=== PATIENT | male | born 1950 | race Caucasian/White ===

== ENCOUNTER 2018-02-06 16:02 | Inpatient (IN) | payer OTHER, MEDICARE, SELFPAY ==
[2018-02-06] VITALS (27 sets, daily range): BP systolic 135–185; BP diastolic 78–110; PULSE 75–119; RESP 18–25; TEMP 35.6–36.8; O2SAT 95–100; BMI 26.6; BMI 25.4; BMI 26.7
--- NOTE | 2018-02-06 16:11 | EKG12_ITS ---
Test Reason : CONFUSION Blood Pressure : / mmHG Vent. Rate : 080 BPM Atrial Rate : 080 BPM P-R Int : 136 ms QRS Dur : 140 ms QT Int : 438 ms P-R-T Axes : 046 -71 006 degrees QTc Int : 505 ms Normal sinus rhythm Left axis deviation Right bundle branch block Lateral infarct , age undetermined Inferior infarct , age undetermined Abnormal ECG Confirmed by RONDA AYALA ([id number]), editor book SHARIFA ROJO ([id number]) on 02/20/2018 5:14:56 PM Referred By: KRYSTIN/ELLI Confirmed By:RONDA AYALA
--- NOTE | 2018-02-06 16:11 | RAD_ITS ---
STUDY: X-RAY CHEST REASON FOR EXAM: Male, 67 years old. Chest pain TECHNIQUE: Frontal view of the chest COMPARISON: 10/11/2016 FINDINGS: The lungs are clear. There are no pleural effusions. There is no pneumothorax. The heart is normal in size. The visualized osseous structures are within normal limits. RAD/Chest 1 View IMPRESSION: No acute thoracic pathology. Electronically Signed: Pro Samaniego, at 17:25 EDT Tel , Service support ,
--- NOTE | 2018-02-06 16:11 | CT_ITS ---
STUDY: CT BRAIN WITHOUT CONTRAST REASON FOR EXAM: Male, 67 years old. Altered mental status. Stroke alert. RADIATION DOSAGE (If Supplied By Facility): CTDIvol = ( 44.99 ) mGy, DLP = ( 796.11 ) mGycm TECHNIQUE: Transaxial CT imaging of the brain was performed without administration of intravenous contrast material. Individualized dose optimization techniques were used for this CT. COMPARISON: 12/11/2016. FINDINGS: There is no acute bleed or infarct. There are stable chronic ischemic and atrophic changes. The ventricles are normal in configuration. There is no hydrocephalus. The visualized paranasal sinuses are clear. The mastoid air cells are well aerated. There is no skull fracture. CT/Brain/Head without Contrast IMPRESSION: Stable chronic ischemic and atrophic changes. No acute intracranial abnormality. N.B. : The above information has been verbally conveyed by Pro Samaniego to Jeffrey Alvarado, Referring Physician, on 02/06/2018 16:37:24 (ET). Electronically Signed: Pro Samaniego, at 16:37 EDT Tel , Service support , N.B. : The above information has been verbally conveyed by Pro Samaniego to Jeffrey Alvarado, Referring Physician, on 02/06/2018 16:37:24 (ET).
[2018-02-06 16:18] LABS: Absolute Lymphocyte Count 2.07 X10^3/ul (0.83-4.51); Basophil# 0.01 X10^3/uL; Basophil% 0.1 % (0-1); Eosinophil# 0.05 X10^3/uL; Eosinophils% 0.5 % (0-5); Hematocrit 43.3 % (40-54); Hemoglobin 15.4 g/dl (13.0-16.5); Lymphocyte # 2.07 X10^3/ul (4.0); Lymphocyte % 21.8 % (19-41); Mean Corp Hgb Conc 35.6 g/gl (32-36); Mean Corpuscular Hgb 32.1 pg (27.0-32.0); Mean Corpuscular Volume 90.2 fL (80-94); Mean Platelet Vol. 10.2 fl (6.2-12.0); Monocyte% 4.2 % (0-10); Neutrophil # 6.95 X10^3/uL (2.7-7.7); Neutrophil % 73.3 % (47-70); Platelet Count 220 K/mm3 (150-450); RBC Distribution Width CV 12.3 % (11.6-14.6); RBC Distribution Width SD 40.5 fl (35.1-43.9); White Blood Count 9.5 K/mm3 (4.4-11.0)
--- NOTE | 2018-02-06 16:19 | ED.DCSUM_ITS ---
- ER Visit Summary Date of Service: 02/06/18 Chief Complaint: Confusion, trouble speaking, right-sided weakness History of Present Illness: The patient is a 67 M presents to the emergency department with sudden onset confusion and right-sided weakness. Patient was in his normal state of health. He actually had a late lunch with his and his son. He was upstairs in his bedroom and began to yell for his . When she got there, he had slurred speech. He was not moving the right side of his body. He was complaining of pain and had multiple episodes of vomiting. Patient does have a history of prior TIA, but no history of stroke. He does take aspirin. He also has history of hypertension, hyperlipidemia, diabetes. On squad arrival, the patient was diaphoretic. He would only respond what are you doing?. He would not answer any other questions. Family denies any recent trauma. Physical Examination: Patient has an NIH of 12 on arrival. It does appear as if he has some right-sided neglect. He has weakness of the right upper extremity. He does have some mild weakness of the right lower extremity. He does have what appears to be expressive aphasia. He is in mild distress. Heart is regular rate and rhythm. Lungs are clear. Abdomen soft, nontender, nondistended. Test Results: [] Emergency Department Course and Treatment: Stroke team was activated on patient arrival. He was sent immediately for CT. CT shows no evidence of acute bleeding or acute infarct. The patient continues to have components of expressive aphasia and right arm weakness. I did discuss patient with Dr. Aranda. The patient was a TPA candidate and this was ordered. Patient will undergo CTA of the head and neck. He was also given Zofran for his nausea. Blood work is obtained and is unremarkable except for hyperglycemia. CTA does not show significant large vessel obstruction. The patient had marked improvement after TPA and repeat NIH was 2. He will be admitted to the ICU. Treatment Plan: [] Dispositio admission Impression: 1. Acute ischemic stroke status post TPA This note was generated with [employer] dictation software. It may contain incorrect words, spelling, and punctuation that were not noted in review of the chart prior to signing ED Disposition - Plan for ED Patient: Chief Complaint: Mental Status Change [facility] [[facility] Provider[facility] -
[2018-02-06 16:20] LABS: POSITIVE COUNT NO; POSITIVE DIFFERENTIAL NO; POSITIVE MORPHOLOGY NO
--- NOTE | 2018-02-06 16:23 | EKG12_ITS ---
Test Reason : CONFUSION Blood Pressure : / mmHG Vent. Rate : 085 BPM Atrial Rate : 085 BPM P-R Int : 134 ms QRS Dur : 136 ms QT Int : 430 ms P-R-T Axes : 047 -51 003 degrees QTc Int : 511 ms Normal sinus rhythm Left axis deviation Right bundle branch block Lateral infarct , age undetermined Inferior infarct , age undetermined Abnormal ECG Confirmed by RONDA AYALA ([id number]), restaurant expeditor SHARIFA ROJO ([id number]) on 02/20/2018 5:15:39 PM Referred By: KRYSTIN/ELLI Confirmed By:RONDA AYALA
[2018-02-06 16:29] LABS: Partial Thromboplast Time 27.3 Seconds (24.1-36.2); Prothrombin Time (Protime)PT. 13.1 SECONDS (11.7-14.9)
[2018-02-06 16:34] LABS: Anion Gap 12 (5-15); BUN 19 mg/dL (7-18); BUN/Creat Ratio 16.4 RATIO (10-20); Calcium,Total 9.5 mg/dL (8.5-10.1); Chloride 103 mmol/L (98-107); Creatinine, Serum 1.16 mg/dL (0.70-1.30); EST Glomerular Filtration Rate 67 mL/min (>60); Est Glom Filt Rate - Afr Amer 80 mL/min (>60); Estimated Creatinine Clearance 60.95 ml/min; Glucose 363 mg/dL (74-106); Potassium 5.3 mmol/L (3.5-5.1); Sodium Level 136 mmol/L (136-145)
--- NOTE | 2018-02-06 16:46 | CT_ITS ---
STUDY: CTA NECK WITH CONTRAST REASON FOR EXAM: Male, 67 years old. Change in mental status with diaphoresis. History of myocardial infarction. RADIATION DOSAGE (If Supplied By Facility): CTDIvol = ( ) mGy, DLP = ( ) mGycm TECHNIQUE: CT angiography with multi-detector data acquisition was performed from the aortic arch to the skull base following intravenous administration of 100 ml of Isovue-370 contrast. MIP images were reconstructed from the axial data set. Post-processing of the angiographic images was performed, with multiplanar reformation and 3D reconstruction. Individualized dose optimization techniques were used for this CT. COMPARISON: Images of CTA carotid arteries October 11, 2016 are not available for comparison at the time of this dictation, but review of the report for that exam was made. FINDINGS: There are multilevel degenerative changes of the visualized cervical spine, degenerative disc height narrowing, endplate spondylosis, and facet joint DJD. AORTIC ARCH: Normal visualized aortic arch. Normal origins of the brachiocephalic, left common carotid, and left subclavian arteries. RIGHT CAROTID ARTERIES: Normal right common carotid artery (CCA). Normal right common carotid bulb. Normal origin of the right internal carotid (ICA) artery without a hemodynamically significant stenosis. Normal visualized cervical portion of the right internal carotid artery. There is mild atherosclerotic plaque formation of the origin of the right external carotid artery with approximate 50% diameter stenosis. LEFT CAROTID ARTERIES: Normal left common carotid artery (CCA). There is mild mixed calcified and noncalcified atherosclerotic plaque formation with minimal narrowing of the left carotid bulb. Normal origin of the left internal carotid (ICA) artery without a hemodynamically significant stenosis. Normal visualized cervical portion of the left internal carotid artery. Normal origin of the left external carotid artery (ECA). VERTEBRAL ARTERIES: Moderate to moderately severe stenosis versus kinking seen at the ostium of the right vertebral artery. The cervical segment is otherwise patent to the foramen magnum. Normal left vertebral artery. CT/CTA Neck W/WO Contrast IMPRESSION: 1. Moderate atherosclerotic plaquing of the bilateral cervical carotid artery bifurcations without significant narrowing of the internal carotid arteries. 2. Moderate to moderately severe stenosis versus kinking at the ostium of the right vertebral artery. The left vertebral artery is widely patent. Electronically Signed: Jermaine Mathur MD at 19:15 EDT , Service support ,
--- NOTE | 2018-02-06 16:46 | CT_ITS ---
STUDY: CTA OF THE BRAIN REASON FOR EXAM: Male, 67 years old. Change in mental status with diaphoresis. History of myocardial infarction. RADIATION DOSAGE (If Supplied By Facility): CTDIvol = ( 15.31 ) mGy, DLP = ( 718.93 ) mGycm TECHNIQUE: CT angiography was performed with a multi-detector CT scanner. Data acquisition was obtained from the skull base through the vertex following intravenous administration of 100 ml of Isovue-370. MIP images were reconstructed from the axial data set. Post-processing of the angiographic images was performed, with multiplanar reformation and 3D reconstruction. Individualized dose optimization techniques were used for this CT. COMPARISON: CTA head December 10, 2016; CT brain 1610 hours. FINDINGS: Stable atherosclerotic calcification of the vertical segments of the bilateral petrous carotid arteries with less than 50% diameter stenosis. There is stable calcified plaque formation of the right cavernous carotid artery, with a mild stenosis (less than 50%). There is stable calcified plaque formation of the left cavernous carotid artery, with a mild stenosis (less than 50%). Normal A1 segment of the anterior cerebral artery. Normal A1 segment of the anterior cerebral artery. Normal intact anterior communicating artery (ACOM). Normal bilateral A2 segments of the anterior cerebral arteries. Normal M1 and M2 segments of the middle cerebral artery, with a normal M1 bifurcation. Normal M1 and M2 segments of the middle cerebral artery, with a normal M1 bifurcation. There is non-visualization of the right posterior communicating artery (PCOM). There is non-visualization of the left posterior communicating artery (PCOM). Normal bilateral vertebral arteries. Normal basilar artery with a normal basilar bifurcation. The visualized bilateral superior cerebellar (SCA) arteries are normal. Normal bilateral P1, P2 and visualized P3 segments of the posterior cerebral arteries. There is no demonstrated aneurysm of the [place]. There is no demonstrated acute abnormality of the visualized brain. CT/CTA Head W/WO Contrast IMPRESSION: No demonstrated aneurysm or hemodynamically significant stenosis of the intracranial arterial circulation, unchanged. Electronically Signed: Jermaine Mathur MD at 19:34 EDT , Service support ,
[2018-02-06 16:56] LABS: Bedside Glucose 362 mg/dL (70-110)
[2018-02-06] MEDS: Ondansetron 4 MG/2 ML Vial IV (16:58)
--- NOTE | 2018-02-06 19:59 | HP.PCM_ITS ---
Problem List (1) Hypertension Status: Chronic Qualifiers: Hypertension type: essential hypertension Qualified Code(s): I10 - Essential (primary) hypertension (2) Diabetes Status: Chronic Qualifiers: Diabetes mellitus type: type 2 Diabetes mellitus penitentiary insulin use: without penitentiary use Diabetes mellitus complication status: with unspecified complications Qualified Code(s): E11.8 - Type 2 diabetes mellitus with unspecified complications History of Present Illness Date of Admission: 02/06/18 Chief Complaint: Trouble speaking, confusion - 1 day The patient is a 67 year old M with past medical history of type II DM, not on insulin, hypertension, CAD status post OK, questionable history of psychiatric illness, follows up with the [facility]. Patient has a history of having trouble speaking, from review of chart, with 3 similar episodes of dysarthria in 2017. Imaging of the brain done in 2017 was negative for acute stroke. Patient was said to be in his usual state of health over the last couple of days ,. Today, he was said to have had his dinner, went upstairs to use the bathroom. His heard a loud noise upstairs. She went to check on him he was sitting on the bed appeared confused, clutching his right hand and kept saying I don't, I don't repeatedly. He was alert oriented only to himself and could not answer questions well. He appeared to have trouble finding words. His NIH score was said to be 12 on arrival with some right-sided neglect. Patient, at the time of taking a history - mainly from the , appeared not to comprehend what I was asking. He appear to have word finding difficulty. Said he could not be seen here because he has to go to the [facility]. patient had a initial CAT scan done in the ED that was negative for any acute stroke. Upon discussion with the neurologist, patient's was subsequently giving TPA and a CT of his head and neck done subsequently showed moderate to severe stenosis versus kinking seen at the ostium of the right vertebral artery. Vitals in the ED with a temperature of 6F, heart rate of 84, blood pressure 185/ 98, respiratory rate was 18, oxygen was 95% on RA. Past Medical History Past Medical History (Chronic Problems): Chronic Problems Hypertension (Chronic) TIA (transient ischemic attack) (Chronic) Depression (Chronic) Diabetes (Chronic) Allergies No Known Allergies Allergy (Verified 02/06/18 16:15) Home Medications: Ambulatory Orders Medication Instructions Recorded Atorvastatin Calcium [Lipitor] 40 mg PO QHS 10/11/16 Venlafaxine HCl 75 mg PO DAILY 10/11/16 glipiZIDE [Glucotrol] 20 mg PO BIDAC 10/11/16 Metoprolol Tartrate 12.5 mg PO BID 10/12/16 Aspirin [Aspirin, Baby] 81 mg PO DAILY@0800 tab.chew 12/11/16 Metformin HCl [Glucophage] 1,000 mg PO DINNER #0 12/11/16 Metformin HCl [Glucophage] 500 mg PO BREAKFAST #0 12/11/16 Surgical History: no surgical history Psychiatric History: Depression, - Lives: Spouse/ Significant Other Smoking Status: Former smoker Tobacco Use: Non-smoker Alcohol: None Drugs: None - *Family History Maternal History Items: No pertinent history Paternal History Items: Heart Disease Review of Systems Constitutional: Denies: Anorexia, Chills, Fever, Night Sweats, Weakness, Weight Change Eyes: Denies: Blurred vision, Cataracts, Conjunctivae Inflammation, Double vision HEENT: Denies: Difficulty Hearing, Difficulty Swallowing, Head Aches, Hearing Changes, Nasal bleeding, Sinus Congestion, Sinus Drainage Cardiovascular: Denies: Chest Pain, Claudication, Chest Pressure, Chest Tightness, Orthopnea, Palpitations, Paroxysmal Noc. Dyspnea, Syncope Respiratory: Denies: Cough, Hemoptysis, Pleuritic Pain, Shortness of breath at rest, Shortness of breath upon exertion, Sputum production Gastrointestinal: Denies: Abdominal Pain, Constipation, Hematemesis, Hematochezia, Nausea, Vomiting Genitourinary: Denies: Dysuria, Frequency, Hematuria, Incontinence, Nocturia, Retention Musculoskeletal: Denies: Joint Pain, Joint stiffness, Joint swelling, Joint Tenderness Skin: Denies: Rash, Wounds Neurological: Denies: Numbness, Tingling, Focal weakness Psychiatric: Denies: Anxiety, Depression, Homicidal Ideations, Suicidal Ideations Hematologic/ Lymphatic: Denies: Easy Bruising, Easy Bleeding VTE Information - Inpt Only VTE Present on Admission: No VTE Pharm Prophylaxis ordered?: Yes - Physical Exam General: Alert, Confused, Non-Cooperative HEENT: Atraumatic, PERRLA, EOMI, Normocephalic Oral: Moist Mucosa Neck: Supple Lungs: Clear to auscultation, Normal air movement Cardiovascular: Regular rate, Regular Rhythm, Normal S1, Normal S2, No murmurs Abdomen: Bowel Sounds Present, Soft, Non Tender, Non-Distended, No Hepato- splenomegaly Extremities: No edema Skin: No rashes, No breakdown Musculoskeletal: No Tenderness to Palpation of Joints or Extremities Lymphatic: No Cervical, Supraclavicular, or Inguinal Adenopathy Neurological: - - Patient was uncooperative with exam. Vital Signs Temp Pulse Resp BP Pulse Ox 98.2 F 101 H 25 H 168/81 H 100 02/06/18 19:34 02/06/18 19:34 02/06/18 19:34 02/06/18 19:05 02/06/18 19:34 Oxygen Flow Rate (L/min) 2 Oxygen Delivery Method Room Air Weight: 82 kg Body Mass Index (BMI) 26.6 Finger Stick Blood Glucose 362 Laboratory Tests Past 24 Hrs 02/06/18 02/06/18 02/06/18 16:08 16:08 16:08 WBC 9.5 RBC 4.80 Hgb 15.4 Hct 43.3 MCV 90.2 MCH 32.1 H MCHC 35.6 RDW 12.3 RDW Differential 40.5 Plt Count 220 MPV 10.2 Immature Gran % (Auto) 0.100 Neut % (Auto) 73.3 H Lymph % (Auto) 21.8 [place] % (Auto) 4.2 Eos % (Auto) 0.5 Baso % (Auto) 0.1 Absolute Neuts (auto) 7.0 Absolute Lymphs (auto) 2.07 Total Counted Not Reportable PT 13.1 INR 1.0 APTT 27.3 Sodium 136 Potassium 5.3 H Chloride 103 Carbon Dioxide 21.0 Anion Gap 12 BUN 19 H Creatinine 1.16 Estim Creat Clear Calc 60.95 Est GFR (MDRD) Af Amer 80 Est GFR (MDRD) Non-Af 67 BUN/Creatinine Ratio 16.4 Glucose 363 H Calcium 9.5 Troponin I < 0.015 POC Glucose 02/06/18 16:33 POC Glucose 362 H Assessment/Plan 67 year old M with past medical history of type II DM, not on insulin, hypertension, CAD status post OK, questionable history of psychiatric illness, [facility], comes in with acute onset of trouble speaking as well as right- sided weakness. 1. Acute onset of dysarthria/expressive aphasia, in a patient with questionable history of psychiatric illness, patient's NIH score was 12 in the ED, CT of the head on admission was negative, given TPA. Repeat NIHSS was 2. Unclear if this is truly acute ischemic stroke as patient has had similar repeated presentations like that in 2017 which imaging has been negative. Plan: Admit to ICU status post TPA for monitoring, monitor NIH scores, profile in a.m., HbA1c, 2D echo neurologist and cross country/track and field coach consult, control BP for SBP <140/90, physical therapy, Occupational Therapy, speech therapy consult, obtain records from [facility] especially with regards to patient's psychiatric history. 2. Type II DM, on metformin and glipizide, will check HbA1c, continue with glipizide,will hold metformin in light of recent contrast, continue with insulin sliding scale with accucheks. 3. Hypertension, on metoprolol, continue same with holding parameters 4. Depression, continue home venlafaxine 5. CAD post OK, on aspirin, statin, beta-dorothy, will hold aspirin for now in the light of recent TPA 6. DVT prophylaxis with SCDs -prophylaxis contraindicated Code Visit Inpatient E&M: 44757 Init Hosp L3
--- NOTE | 2018-02-06 21:07 | MRI_ITS ---
STUDY: MRI BRAIN WITHOUT CONTRAST REASON FOR EXAM: Male, 67 years old. acute cva, s/p tpa. Change in mental status with diaphoresis. History of myocardial infarction. TECHNIQUE: Standardized multiplanar fat and water weighted pulse sequences were obtained. COMPARISON: None. FINDINGS: There is mild cerebral atrophy with widening of the extra-axial spaces and ventricular dilatation. There are a limited number of small white matter hyperintensities, distributed throughout the deep white matter tracts of the cerebral hemispheres, consistent with minimal chronic white matter ischemic changes. Normal bilateral basal ganglia. Normal thalami. There is no extra-axial fluid accumulation. Normal flow voids within the major intracranial circulation suggesting patency by spin echo criteria. Normal sella turcica, pituitary gland, infundibular stalk, optic chiasm and hypothalamus. Normal tectal plate and pineal gland. Normal midbrain, lala and medulla. Normal cerebellum. Normal basal cisterns. Normal bilateral temporal bones. Normal bilateral internal auditory canals. MRI/Brain without Contrast IMPRESSION: No acute intracranial abnormality. Electronically Signed: Mckenzie Reyes MD at 10:24 EDT Tel , Service support ,
--- NOTE | 2018-02-06 21:21 | ECHOD_ITS ---
Reason For Study: TIA/CVA Procedure This was a 2D Doppler, Color Flow transthoracic echocardiogram. The exam was of adequate technical quality. Exam performed portable in ICU/CCU. Left Ventricle Normal LV size. Segmental dysfunction with preserved ejection fraction (see wall motion). The estimated ejection fraction is 60 %. There is evidence of diastolic dysfunction. Infero-Basal: Hypokinetic. Mid-Inferior: Hypokinetic. Right Ventricle Normal RV size. Normal systolic function. Atria Normal left atrium. Normal right atrium. No doppler evidence for ASD. Mitral Valve There is no mitral annular calcification. Normal mitral valve. Trivial mitral valve insufficiency. Tricuspid Valve Normal tricuspid valve. Trivial tricuspid valve insufficiency. Right ventricular systolic pressure estimated to be 20 mmHg. Aortic Valve Trisinus/trileaflet aortic valve. Mild diffuse aortic valve thickening. Moderate diffuse aortic valve calcification. Mild aortic stenosis. Pulmonic Valve The pulmonic valve is not well visualized. Great Vessels Normal sized aortic root. Pericardium/Pleural No pericardial effusion. MMode/2D Measurements & Calculations LVIDd: 4.5 cm IVSd: 1.2 cm LVOT diam: 2.1 cm LVIDs: 3.2 cm LVPWd: 1.0 cm LVOT area: 3.4 cm2 RVDd: 4.2 cm FS: 29.1 % LA dimension: 3.7 cm LAV(MOD-bp): 44.3 ml LA A4 area: 17.9 cm2 LAV(MOD-bp) Indexed: 22.9 ml/m2 LAV(MOD-sp2): 39.3 ml LAV(MOD-sp4): 44.2 ml RA A4 area: 17.3 cm2 Doppler Measurements & Calculations MV E max jhonny: 94.4 cm/sec Lat Peak E' Jhonny: 7.2 cm/sec Med Peak E' Jhonny: 5.3 cm/sec MV A max jhonny: 106.5 cm/sec E/E' lat: 13.1 E/E' med: 17.8 MV E/A: 0.89 Ao V2 max: 263.4 cm/sec LV V1 max: 133.1 cm/sec SV(LVOT): 102.8 ml Ao max P.8 mmHg LV V1 max P.1 mmHg Ao V2 mean: 184.7 cm/sec LV V1 mean P.8 mmHg Ao mean P.3 mmHg LV V1 mean: 91.4 cm/sec Ao V2 VTI: 53.9 cm LV V1 VTI: 30.3 cm [place](I,D): 1.9 cm2 [place](V,D): 1.7 cm2 PA V2 max: 107.9 cm/sec TR max jhonny: 203.1 cm/sec TR max P.5 mmHg Interpretation Summary Segmental dysfunction with preserved ejection fraction (see wall motion). The estimated ejection fraction is 60 %. Trivial mitral valve insufficiency. Trivial tricuspid valve insufficiency. Mild aortic stenosis. Right ventricular systolic pressure estimated to be 20 mmHg. There is evidence of diastolic dysfunction. Ordering Physician: Shalini Oquendo Referring Physician: [facility] Performed By: Romelia Flores, DANISHA, RVT
[2018-02-06] MEDS: Atorvastatin Calcium 40 MG Tablet PO (21:42)
[2018-02-06] MEDS: 0.9% Normal Saline 1,000 ML 100 ML IV (21:42)
[2018-02-06] MEDS: Senna/Docusate Sodium 1 Tablet 2 TABLET PO (21:42)
[2018-02-06] MEDS: Insulin Lispro 100 UNIT/ML INSULN.PEN SQ (21:58)
[2018-02-06 22:05] LABS: Bedside Glucose 402 mg/dL (70-110)
[2018-02-06 22:14] LABS: Hemoglobin A1c 8.2 % (4.2-6.3)
[2018-02-06] MEDS: Metoprolol Tartrate 25 MG Tablet 12.5 MG PO (22:41)
[2018-02-07] VITALS (36 sets, daily range): BP systolic 95–143; BP diastolic 61–99; PULSE 62–118; RESP 12–24; TEMP 36.6–37.5; O2SAT 94–100; BMI 25.4
[2018-02-07 00:16] LABS: M R Staph aureus DNA By PCR Negative (Negative); Probe Check PASS; Specimen Processing Control PASS
--- NOTE | 2018-02-07 01:15 | NURSING ---
came in to visit pt around 0030 on 02/07. this RN gave pt's home meds and pt's wallet to take home. this RN explained importance to return for morning rounds. verbalized understanding
[2018-02-07 05:12] LABS: Hematocrit 38.3 % (40-54); Hemoglobin 13.3 g/dl (13.0-16.5); Mean Corp Hgb Conc 34.7 g/gl (32-36); Mean Corpuscular Volume 92.3 fL (80-94); Mean Platelet Vol. 10.3 fl (6.2-12.0); Platelet Count 238 K/mm3 (150-450); RBC Distribution Width CV 12.4 % (11.6-14.6); RBC Distribution Width SD 40.8 fl (35.1-43.9); Red Blood Count 4.15 M/mm3 (4.6-6.2); White Blood Count 11.8 K/mm3 (4.4-11.0)
[2018-02-07 05:28] LABS: Anion Gap 12 (5-15); BUN 19 mg/dL (7-18); BUN/Creat Ratio 15.3 RATIO (10-20); Calcium,Total 8.3 mg/dL (8.5-10.1); Chloride 103 mmol/L (98-107); Cholesterol 110 mg/dL (200); Creatinine, Serum 1.24 mg/dL (0.70-1.30); EST Glomerular Filtration Rate 62 mL/min (>60); Est Glom Filt Rate - Afr Amer 75 mL/min (>60); Estimated Creatinine Clearance 55.16 ml/min; Glucose 384 mg/dL (74-106); High Density Lipoprotein 36 mg/dL; Potassium 4.1 mmol/L (3.5-5.1); Scan Indicated on CBC? Y/N NO; Sodium Level 138 mmol/L (136-145); Triglycerides 114 mg/dL; Very Low Density Lipoprotein 23 mg/dL (5-40)
[2018-02-07] MEDS: Insulin Lispro 100 UNIT/ML INSULN.PEN 10 UNIT SC (06:21)
--- NOTE | 2018-02-07 06:30 | PCM.PROGNOTE ---
Subjective: The patient is a 67-year-old male with a past medical history of hypertension, TIA, depression, diabetes mellitus type 2 and hyperlipidemia who presented to the emergency room by squad with right-sided weakness, slurred speech and confusion. In the emergency room his initial NIH was 12 with expressive aphasia and right-sided weakness. Vital signs upon arrival to the emergency room were temperature 96, pulse rate 84, blood pressure 185/98, respiratory rate 18 and he was 95% saturated on room air. CT brain showed stable chronic ischemic and atrophic changes with no acute intracranial abnormality. Chest x-ray showed no pulmonary vascular congestion, infiltrates or pleural effusions. CTA of the neck showed moderate atherosclerotic plaquing of bilateral cervical carotid artery bifurcations without significant narrowing of the internal carotid arteries. There was moderate to moderately severe stenosis versus kinking at the ostium of the right vertebral artery. The left vertebral artery was widely patent. CTA of the head showed no demonstrated aneurysm or hemodynamically significant stenosis of the intracranial arterial circulation. CBC was unremarkable. PT and PTT were normal. Potassium was elevated at 5.3 and the BUN was 19 with a creatinine of 1.16. Random blood sugar was 363 and a hemoglobin A1c is 8.2. Troponin was less than 0.015. LDL is 51 with an HDL of 36. Triglycerides are 114. TPA was given in the emergency room. He was admitted to the intensive care unit and stroke protocol was initiated. All events of the past 24 hours have been reviewed. TMAX: 99.5 Vital signs: Current vital signs are temperature 98.1, heart rate 82, blood pressure 102/66, respiratory rate 15 and he is 98% saturated on room air. Fluid balance: -60 since admission Urine output: 1250 Weight: 174 pounds and 6 ounces All radiologic testing was reviewed: See the [facility] All labs were personally reviewed: Creatinine is 1.24 today, up from 1.16 at admission. Fasting blood sugar is 384. White blood cell count is 11.8 and hemoglobin is 13.3 with normal platelets. Microbiology: N/A Telemetry: ECHO:ordered EKG: Subjective: Passed the bedside swallowing eval per nursing and started on a carb control diet with low salt and low fat. reports that the patient has been non-compliant with medications at home. He is not taking any statins becuase he states they make him confused. He manages his own medication and takes what he wants. He has not spoken to her in 2 months because he is mad that she took a inspector purchased parts job a few months ago. He is very passive aggressive with her and manipulative. He tells me that his A1C used to be good but now he is unable to exercise because he has back pain and can not do the treadmill....he has not addressed this with his PCP. He follows up at the [facility]. He denies any CP, SOB, Headache today and the NIH is 0. Objective: PHYSICAL EXAM: GENERAL: alert, oriented X 3, Cooperative, NAD, ORAL: moist mucosa, no mucosal lesions NECK: No JVD, supple, trachea midline, no carotid bruits heard LUNGS: CTA, symmetric chest expansion HEART: RRR, Normal S1 and S2, no rub, no gallop, no MM ABDOMEN: soft, NT, ND, BS present, no guarding with palpation EXTREMITIES: no edema, no cyanosis, no calf tenderness, pulses are normal in the arms and legs SKIN: No rashes, no breakdown NEUROLOGIC: no focal neurologic deficits, CN II - XII are grossly intact, moving all extremities, NIH is 0 PSYCH: appropriate, normal affect, many excuses why he does not take his medications as instructed - Physical Exam Vital Signs Temp Pulse Resp BP Pulse Ox 98.1 F 82 15 102/66 98 02/07/18 06:00 02/07/18 06:00 02/07/18 06:00 02/07/18 06:00 02/07/18 06:00 Oxygen Delivery Method Room Air Weight: 174 lb 6.17 oz Body Mass Index (BMI) 25.4 Intake and Output for Last 24 Hours 02/05/18 02/06/18 02/07/18 23:59 23:59 23:59 Intake Total 1190 / 1190 Output Total 1250 / 1250 Balance -60 / -60 Laboratory Tests Past 24 Hrs 02/06/18 02/06/18 02/07/18 21:30 22:30 04:55 WBC RBC Hgb Hct MCV MCH MCHC RDW RDW Differential Plt Count MPV Sodium 138 Potassium 4.1 Chloride 103 Carbon Dioxide 23.0 Anion Gap 12 BUN 19 H Creatinine 1.24 Estim Creat Clear Calc 55.16 Est GFR (MDRD) Af Amer 75 Est GFR (MDRD) Non-Af 62 BUN/Creatinine Ratio 15.3 Glucose 384 H Hemoglobin A1c 8.2 H Calcium 8.3 L Triglycerides 114 Cholesterol 110 LDL Cholesterol 51 VLDL Cholesterol 23 HDL Cholesterol 36 L MRSA (PCR) Negative 02/07/18 04:55 WBC 11.8 H RBC 4.15 L Hgb 13.3 Hct 38.3 L MCV 92.3 MCH 32.0 MCHC 34.7 RDW 12.4 RDW Differential 40.8 Plt Count 238 MPV 10.3 Sodium Potassium Chloride Carbon Dioxide Anion Gap BUN Creatinine Estim Creat Clear Calc Est GFR (MDRD) Af Amer Est GFR (MDRD) Non-Af BUN/Creatinine Ratio Glucose Hemoglobin A1c Calcium Triglycerides Cholesterol LDL Cholesterol VLDL Cholesterol HDL Cholesterol MRSA (PCR) POC Glucose 02/06/18 21:57 POC Glucose 402 H Medical Necessity - Tobacco Use Smoking Status: Former smoker Tobacco Use: Non-smoker Assessment/Plan Impressions 1. suspected CVA in the distribution of the L MCA - S/P TPA with complete recovery 2. Uncontrolled diabetes mellitus type 2 with a hemoglobin A1c of 8.2 3. Hypertension 4. History of depression 5. Coronary artery disease 6. Noncompliant with medications 7. 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 EEG today. MRI is normal. Reviewed Dr. Aranda's consult Probable DC tomorrow and [facility]. Code Visit Inpatient E&M: 37887 Subs Hosp L3
--- NOTE | 2018-02-07 07:04 | PCM.CON.CC ---
Problem List (1) Hypertension Status: Chronic Qualifiers: Hypertension type: essential hypertension Qualified Code(s): I10 - Essential (primary) hypertension (2) Depression Status: Chronic Qualifiers: (3) Ischemic stroke Status: Acute (4) Dysarthria Status: Acute (5) Diabetes Status: Chronic Qualifiers: Diabetes mellitus type: type 2 Diabetes mellitus supervisor intermediates insulin use: without senior care use Diabetes mellitus complication status: with unspecified complications Qualified Code(s): E11.8 - Type 2 diabetes mellitus with unspecified complications Reason for Consult Date of Consultation: 02/07/18 Reason for Consultation: Stroke protocol status post TPA History of Present Illness: The patient is a 67 year old M, with past medical history listed below, who presented to [facility] on 02/06/2018 with complaints of sudden onset of confusion, right-sided weakness and slurring of speech. Patient was reportedly of his usual health and had eaten a late lunch with his and son. While upstairs, patient began to yell for his . When she got there, slurred speech was reported, along with right-sided weakness. Patient had complained of pain and multiple episodes of vomiting. EMS was called and on arrival reported that the patient was diaphoretic. No trauma was noted. On presentation to the emergency room, patient's NIH was noted to be 12 with reported right-sided neglect. Patient did have weakness of the right upper extremity and mild weakness of the right lower extremity. Patient was also noted to have expressive aphasia. CT scan showed no acute bleeding or infarct. Neurology was contacted by phone and patient was initiated on TPA. The infusion was completed at 1810. On initiation of TPA, patient was noted to have a repeat NIH of 2. Patient was then admitted to the intensive care unit. Overnight in the intensive care unit, patient was noted to be hyperglycemic, but otherwise was hemodynamically stable. Blood pressures did trend higher, but no intervention was required. Patient has remained on room air. Patient's NIH went back to 0. Patient does not have much more recollection of the event that he can express to me. Patient does not have slurred speech at this time. Patient does report a similar type of presentation in the past, but did not get TPA at that time. Patient does not use insulin at home, but admits he does not check his blood sugars frequently. Patient does take metformin at home, but this was held secondary to dye load. Patient is typically cared for at the [facility]. Past Medical History Past Medical History (Chronic Problems): Chronic Problems Hypertension (Chronic) TIA (transient ischemic attack) (Chronic) Depression (Chronic) Diabetes (Chronic) Allergies No Known Allergies Allergy (Verified 02/06/18 23:27) Home Medications: Ambulatory Orders Medication Instructions Recorded Atorvastatin Calcium [Lipitor] 40 mg PO QHS 10/11/16 Venlafaxine HCl 75 mg PO DAILY 10/11/16 glipiZIDE [Glucotrol] 20 mg PO BIDAC 10/11/16 Metoprolol Tartrate 12.5 mg PO BID 10/12/16 Aspirin [Aspirin, Baby] 81 mg PO DAILY@0800 tab.chew 12/11/16 Metformin HCl [Glucophage] 1,000 mg PO DINNER #0 12/11/16 Metformin HCl [Glucophage] 500 mg PO BREAKFAST #0 12/11/16 Surgical History: no surgical history Psychiatric History: Depression, - Lives: Spouse/ Significant Other Smoking Status: Former smoker Tobacco Use: Non-smoker Alcohol: None Drugs: None - *Family History Maternal History Items: No pertinent history Paternal History Items: Heart Disease Review of Systems Comment: See HPI, otherwise negative ?10 systems. No nausea reported at this time. Objective: All imaging was personally reviewed. I agree with formal interpretations. MRI has been ordered - Physical Exam General: Alert, Oriented x3, Cooperative, No apparent distress, - - Flat affect. Speaks in full sentences. Appears stated age. HEENT: Atraumatic, PERRLA, EOMI, Normocephalic, - - No scleral icterus or injection noted. Oral: Moist Mucosa, No Gingival or Mucosal Lesions/ Ulcerations Neck: Supple, No JVD, No Nodes, Trachea Midline Lungs: Clear to auscultation, Normal air movement, No rhonchi, No wheeze, No rales Cardiovascular: Regular rate, Regular Rhythm, Normal S1, Normal S2, No murmurs, No rub noted, No Gallop Abdomen: Bowel Sounds Present, Soft, Non Tender, Non-Distended Extremities: No clubbing, No cyanosis, No edema Skin: No rashes, No breakdown, - - No signs of trauma appreciated. Musculoskeletal: No Tenderness to Palpation of Joints or Extremities, No Muscle Wasting Lymphatic: No Cervical, Supraclavicular, or Inguinal Adenopathy Neurological: Cranial nerves II-XII grossly intact, Neuro grossly intact - No aphasia appreciated, Motor Exam 5/5 strength throughout - Right-sided weakness has resolved, Sensory exam intact to light touch and pain Psych/Mental Status: Appropriate, Flat Affect Vital Signs Temp Pulse Resp BP Pulse Ox 36.7 C 82 15 102/66 98 02/07/18 06:00 02/07/18 06:00 02/07/18 06:00 02/07/18 06:00 02/07/18 06:00 Oxygen Delivery Method Room Air Weight: 79.1 kg Body Mass Index (BMI) 25.4 Intake and Output for Last 24 Hours 02/05/18 02/06/18 02/07/18 23:59 23:59 23:59 Intake Total 1190 / 1190 Output Total 1250 / 1250 Balance -60 / -60 Laboratory Tests Past 24 Hrs 02/06/18 02/06/18 02/07/18 21:30 22:30 04:55 WBC RBC Hgb Hct MCV MCH MCHC RDW RDW Differential Plt Count MPV Sodium 138 Potassium 4.1 Chloride 103 Carbon Dioxide 23.0 Anion Gap 12 BUN 19 H Creatinine 1.24 Estim Creat Clear Calc 55.16 Est GFR (MDRD) Af Amer 75 Est GFR (MDRD) Non-Af 62 BUN/Creatinine Ratio 15.3 Glucose 384 H Hemoglobin A1c 8.2 H Calcium 8.3 L Phosphorus Magnesium Total Bilirubin Direct Bilirubin AST ALT Alkaline Phosphatase Total Protein Albumin Triglycerides 114 Cholesterol 110 LDL Cholesterol 51 VLDL Cholesterol 23 HDL Cholesterol 36 L MRSA (PCR) Negative 02/07/18 02/07/18 04:55 04:55 WBC 11.8 H RBC 4.15 L Hgb 13.3 Hct 38.3 L MCV 92.3 MCH 32.0 MCHC 34.7 RDW 12.4 RDW Differential 40.8 Plt Count 238 MPV 10.3 Sodium Potassium Chloride Carbon Dioxide Anion Gap BUN Creatinine Estim Creat Clear Calc Est GFR (MDRD) Af Amer Est GFR (MDRD) Non-Af BUN/Creatinine Ratio Glucose Hemoglobin A1c Calcium Phosphorus Pending Magnesium Pending Total Bilirubin Pending Direct Bilirubin Pending AST Pending ALT Pending Alkaline Phosphatase Pending Total Protein Pending Albumin Pending Triglycerides Cholesterol LDL Cholesterol VLDL Cholesterol HDL Cholesterol MRSA (PCR) POC Glucose 02/06/18 21:57 POC Glucose 402 H Clinical Impression(s) from Imaging Studies Brain CT 02/06/18 16:11 IMPRESSION: Stable chronic ischemic and atrophic changes. No acute intracranial abnormality. N.B. : The above information has been verbally conveyed by Pro Samaniego to Jeffrey Alvarado, Referring Physician, on 02/06/2018 16:37:24 (ET). Electronically Signed: Pro Samaniego, at 16:37 EDT Tel , Service support , N.B. : The above information has been verbally conveyed by Pro Samaniego to Jeffrey Alvarado, Referring Physician, on 02/06/2018 16:37:24 (ET). Chest X-Ray 02/06/18 16:11 IMPRESSION: No acute thoracic pathology. Electronically Signed: Pro Samaniego, at 17:25 EDT Tel , Service support , Head CTA 02/06/18 16:46 IMPRESSION: No demonstrated aneurysm or hemodynamically significant stenosis of the intracranial arterial circulation, unchanged. Electronically Signed: Jermaine Mathur MD at 19:34 EDT , Service support , Neck CTA 02/06/18 16:46 IMPRESSION: 1. Moderate atherosclerotic plaquing of the bilateral cervical carotid artery bifurcations without significant narrowing of the internal carotid arteries. 2. Moderate to moderately severe stenosis versus kinking at the ostium of the right vertebral artery. The left vertebral artery is widely patent. Electronically Signed: Jermaine Mathur MD at 19:15 EDT , Service support , Assessment/Plan RECOMMENDATIONS: 1. Give 10 units of insulin now 2. Await speech evaluation prior to initiation of p.o. diet 3. Await MRI 4. Monitor for bleeding complications, keep systolic blood pressure less than 180 5. Likely okay to transfer from the intensive care unit after 6:10 PM IMPRESSIONS: 1. Possible acute CVA status post TPA Patient with an NIH of 12 on initial presentation to the emergency room. Patient was given TPA and appears to have completely resolved at this time. No bleeding complications have been noted. Patient has had some elevated blood pressures, but no intervention has been required at this time. Therapies have been consulted. MRI has been ordered. Patient appears to have some carotid disease, but no occlusion is been reported. 2. Type 2 diabetes mellitus, uncontrolled Patient with elevated blood sugars this morning. Metformin was held secondary to recent contrast. Patient given a 10 unit bolus of insulin. Await speech therapy. Reinitiate baseline medications. May need to titrate up hyperglycemic medications as an outpatient. 3. Hypertension/depression/coronary artery disease/poor historian Complicates care, management, recovery and prognosis. Allowing for permissive hypertension at this time. Labetalol and hydralazine as needed can be used if necessary for systolic blood pressures greater than 180. Code Visit Inpatient E&M: [id number] Init Hosp L3
[2018-02-07 07:05] LABS: AST(SGOT) 12 U/L (15-37); Alanine Aminotransfer ALT/SGPT 27 U/L (16-61); Albumin, Serum 3.4 g/dL (3.2-5.0); Alkaline Phosphatase 78 U/L (45-117); Bilirubin, Direct 0.13 mg/dL (0.00-0.30); Globulin 3.1 g/dL (2.2-4.2); Magnesium 1.9 mg/dL (1.6-2.6); Phosphorus 3.7 mg/dL (2.5-4.9); Protein, Total 6.5 g/dL (6.4-8.2)
[2018-02-07 07:10] LABS: Bedside Glucose 279 mg/dL (70-110)
--- NOTE | 2018-02-07 07:14 | CON.PCM_ITS ---
Problem List (1) Hypertension Status: Chronic Qualifiers: Hypertension type: essential hypertension Qualified Code(s): I10 - Essential (primary) hypertension (2) Depression Status: Chronic Qualifiers: (3) Ischemic stroke Status: Acute (4) Dysarthria Status: Acute (5) Diabetes Status: Chronic Qualifiers: Diabetes mellitus type: type 2 Diabetes mellitus oil heaterman insulin use: without fci use Diabetes mellitus complication status: with unspecified complications Qualified Code(s): E11.8 - Type 2 diabetes mellitus with unspecified complications Reason for Consult Date of Consultation: 02/07/18 Reason for Consultation: Stroke protocol status post TPA History of Present Illness: The patient is a 67 year old M, with past medical history listed below, who presented to [facility] on 02/06/2018 with complaints of sudden onset of confusion, right-sided weakness and slurring of speech. Patient was reportedly of his usual health and had eaten a late lunch with his and son. While upstairs, patient began to yell for his . When she got there, slurred speech was reported, along with right-sided weakness. Patient had complained of pain and multiple episodes of vomiting. EMS was called and on arrival reported that the patient was diaphoretic. No trauma was noted. On presentation to the emergency room, patient's NIH was noted to be 12 with reported right-sided neglect. Patient did have weakness of the right upper extremity and mild weakness of the right lower extremity. Patient was also noted to have expressive aphasia. CT scan showed no acute bleeding or infarct. Neurology was contacted by phone and patient was initiated on TPA. The infusion was completed at 1810. On initiation of TPA, patient was noted to have a repeat NIH of 2. Patient was then admitted to the intensive care unit. Overnight in the intensive care unit, patient was noted to be hyperglycemic, but otherwise was hemodynamically stable. Blood pressures did trend higher, but no intervention was required. Patient has remained on room air. Patient's NIH went back to 0. Patient does not have much more recollection of the event that he can express to me. Patient does not have slurred speech at this time. Patient does report a similar type of presentation in the past, but did not get TPA at that time. Patient does not use insulin at home, but admits he does not check his blood sugars frequently. Patient does take metformin at home, but this was held secondary to dye load. Patient is typically cared for at the [facility]. Past Medical History Past Medical History (Chronic Problems): Chronic Problems Hypertension (Chronic) TIA (transient ischemic attack) (Chronic) Depression (Chronic) Diabetes (Chronic) Allergies No Known Allergies Allergy (Verified 02/06/18 23:27) Home Medications: Ambulatory Orders Medication Instructions Recorded Atorvastatin Calcium [Lipitor] 40 mg PO QHS 10/11/16 Venlafaxine HCl 75 mg PO DAILY 10/11/16 glipiZIDE [Glucotrol] 20 mg PO BIDAC 10/11/16 Metoprolol Tartrate 12.5 mg PO BID 10/12/16 Aspirin [Aspirin, Baby] 81 mg PO DAILY@0800 tab.chew 12/11/16 Metformin HCl [Glucophage] 1,000 mg PO DINNER #0 12/11/16 Metformin HCl [Glucophage] 500 mg PO BREAKFAST #0 12/11/16 Surgical History: no surgical history Psychiatric History: Depression, - Lives: Spouse/ Significant Other Smoking Status: Former smoker Tobacco Use: Non-smoker Alcohol: None Drugs: None - *Family History Maternal History Items: No pertinent history Paternal History Items: Heart Disease Review of Systems Comment: See HPI, otherwise negative ?10 systems. No nausea reported at this time. Objective: All imaging was personally reviewed. I agree with formal interpretations. MRI has been ordered - Physical Exam General: Alert, Oriented x3, Cooperative, No apparent distress, - - Flat affect. Speaks in full sentences. Appears stated age. HEENT: Atraumatic, PERRLA, EOMI, Normocephalic, - - No scleral icterus or injection noted. Oral: Moist Mucosa, No Gingival or Mucosal Lesions/ Ulcerations Neck: Supple, No JVD, No Nodes, Trachea Midline Lungs: Clear to auscultation, Normal air movement, No rhonchi, No wheeze, No rales Cardiovascular: Regular rate, Regular Rhythm, Normal S1, Normal S2, No murmurs, No rub noted, No Gallop Abdomen: Bowel Sounds Present, Soft, Non Tender, Non-Distended Extremities: No clubbing, No cyanosis, No edema Skin: No rashes, No breakdown, - - No signs of trauma appreciated. Musculoskeletal: No Tenderness to Palpation of Joints or Extremities, No Muscle Wasting Lymphatic: No Cervical, Supraclavicular, or Inguinal Adenopathy Neurological: Cranial nerves II-XII grossly intact, Neuro grossly intact - No aphasia appreciated, Motor Exam 5/5 strength throughout - Right-sided weakness has resolved, Sensory exam intact to light touch and pain Psych/Mental Status: Appropriate, Flat Affect Vital Signs Temp Pulse Resp BP Pulse Ox 36.7 C 82 15 102/66 98 02/07/18 06:00 02/07/18 06:00 02/07/18 06:00 02/07/18 06:00 02/07/18 06:00 Oxygen Delivery Method Room Air Weight: 79.1 kg Body Mass Index (BMI) 25.4 Intake and Output for Last 24 Hours 02/05/18 02/06/18 02/07/18 23:59 23:59 23:59 Intake Total 1190 / 1190 Output Total 1250 / 1250 Balance -60 / -60 Laboratory Tests Past 24 Hrs 02/06/18 02/06/18 02/07/18 21:30 22:30 04:55 WBC RBC Hgb Hct MCV MCH MCHC RDW RDW Differential Plt Count MPV Sodium 138 Potassium 4.1 Chloride 103 Carbon Dioxide 23.0 Anion Gap 12 BUN 19 H Creatinine 1.24 Estim Creat Clear Calc 55.16 Est GFR (MDRD) Af Amer 75 Est GFR (MDRD) Non-Af 62 BUN/Creatinine Ratio 15.3 Glucose 384 H Hemoglobin A1c 8.2 H Calcium 8.3 L Phosphorus Magnesium Total Bilirubin Direct Bilirubin AST ALT Alkaline Phosphatase Total Protein Albumin Triglycerides 114 Cholesterol 110 LDL Cholesterol 51 VLDL Cholesterol 23 HDL Cholesterol 36 L MRSA (PCR) Negative 02/07/18 02/07/18 04:55 04:55 WBC 11.8 H RBC 4.15 L Hgb 13.3 Hct 38.3 L MCV 92.3 MCH 32.0 MCHC 34.7 RDW 12.4 RDW Differential 40.8 Plt Count 238 MPV 10.3 Sodium Potassium Chloride Carbon Dioxide Anion Gap BUN Creatinine Estim Creat Clear Calc Est GFR (MDRD) Af Amer Est GFR (MDRD) Non-Af BUN/Creatinine Ratio Glucose Hemoglobin A1c Calcium Phosphorus Pending Magnesium Pending Total Bilirubin Pending Direct Bilirubin Pending AST Pending ALT Pending Alkaline Phosphatase Pending Total Protein Pending Albumin Pending Triglycerides Cholesterol LDL Cholesterol VLDL Cholesterol HDL Cholesterol MRSA (PCR) POC Glucose 02/06/18 21:57 POC Glucose 402 H Clinical Impression(s) from Imaging Studies Brain CT 02/06/18 16:11 IMPRESSION: Stable chronic ischemic and atrophic changes. No acute intracranial abnormality. N.B. : The above information has been verbally conveyed by Pro Samaniego to Jeffrey Alvarado, Referring Physician, on 02/06/2018 16:37:24 (ET). Electronically Signed: Pro Samaniego, at 16:37 EDT Tel , Service support , N.B. : The above information has been verbally conveyed by Pro Samaniego to Jeffrey Alvarado, Referring Physician, on 02/06/2018 16:37:24 (ET). Chest X-Ray 02/06/18 16:11 IMPRESSION: No acute thoracic pathology. Electronically Signed: Pro Samaniego, at 17:25 EDT Tel , Service support , Head CTA 02/06/18 16:46 IMPRESSION: No demonstrated aneurysm or hemodynamically significant stenosis of the intracranial arterial circulation, unchanged. Electronically Signed: Jermaine Mathur MD at 19:34 EDT , Service support , Neck CTA 02/06/18 16:46 IMPRESSION: 1. Moderate atherosclerotic plaquing of the bilateral cervical carotid artery bifurcations without significant narrowing of the internal carotid arteries. 2. Moderate to moderately severe stenosis versus kinking at the ostium of the right vertebral artery. The left vertebral artery is widely patent. Electronically Signed: Jermaine Mathur MD at 19:15 EDT , Service support , Assessment/Plan RECOMMENDATIONS: 1. Give 10 units of insulin now 2. Await speech evaluation prior to initiation of p.o. diet 3. Await MRI 4. Monitor for bleeding complications, keep systolic blood pressure less than 180 5. Likely okay to transfer from the intensive care unit after 6:10 PM IMPRESSIONS: 1. Possible acute CVA status post TPA Patient with an NIH of 12 on initial presentation to the emergency room. Patient was given TPA and appears to have completely resolved at this time. No bleeding complications have been noted. Patient has had some elevated blood pressures, but no intervention has been required at this time. Therapies have been consulted. MRI has been ordered. Patient appears to have some carotid disease, but no occlusion is been reported. 2. Type 2 diabetes mellitus, uncontrolled Patient with elevated blood sugars this morning. Metformin was held secondary to recent contrast. Patient given a 10 unit bolus of insulin. Await speech therapy. Reinitiate baseline medications. May need to titrate up hyperglycemic medications as an outpatient. 3. Hypertension/depression/coronary artery disease/poor historian Complicates care, management, recovery and prognosis. Allowing for permissive hypertension at this time. Labetalol and hydralazine as needed can be used if necessary for systolic blood pressures greater than 180. Code Visit Inpatient E&M: 48171 Init Hosp L3
[2018-02-07] MEDS: 0.9% Normal Saline 1,000 ML 100 ML IV ×2 (07:43→19:59)
[2018-02-07] MEDS: 0.9% Normal Saline 1,000 ML 999 ML IV (07:43)
[2018-02-07] MEDS: Insulin Lispro 100 UNIT/ML INSULN.PEN 6 UNIT SC ×2 (07:46→16:47)
[2018-02-07] MEDS: Insulin Lispro 100 UNIT/ML INSULN.PEN SQ ×3 (07:47→21:23)
--- NOTE | 2018-02-07 09:59 | NURSING ---
[id number] pt taken down to MRI unable to do NIH and assessment at that time, Winter lugo RN down with patient. returned from MRI to floor Now
[2018-02-07] MEDS: Senna/Docusate Sodium 1 Tablet 2 TABLET PO (10:08)
[2018-02-07] MEDS: Metoprolol Tartrate 25 MG Tablet 12.5 MG PO ×2 (10:09→21:25)
--- NOTE | 2018-02-07 11:01 | CON.PCM_ITS ---
Reason for Consult Date of Consultation: 02/07/18 Reason for Consultation: cva s/p tpa History of Present Illness: The patient is a 67 year old right handed white male, who yesterday at about 3 PM noted the onset of language abnormality associated with right-sided weakness and neglect. He presented to the emergency department, and within an hour, he was evaluated and IV TPA was given the. His CT was negative. Today he is completely recovered and feels normal. He says that yesterday he was mowing in the heat, he experiences severe headache nausea and diaphoresis. I note that his blood sugar was also high in the emergency department. To confound factors further, he has a history of stress and anxiety, apparently he and his have been noncommunicative although living under the same roof for several months now. He does not take aspirin anymore. He has had several stroke workup similar symptoms as above in the past, with negative findings. Also discontinued his statin. He denies any other medications. per admit h&p:The patient is a 67 year old M with past medical history of type II DM, not on insulin, hypertension, CAD status post NH, questionable history of psychiatric illness, follows up with the [facility]. Patient has a history of having trouble speaking, from review of chart, with 3 similar episodes of dysarthria in 2017. Imaging of the brain done in 2017 was negative for acute stroke. Patient was said to be in his usual state of health over the last couple of days ,. Today, he was said to have had his dinner, went upstairs to use the bathroom. His heard a loud noise upstairs. She went to check on him he was sitting on the bed appeared confused, clutching his right hand and kept saying I don't, I don't repeatedly. He was alert oriented only to himself and could not answer questions well. He appeared to have trouble finding words. His NIH score was said to be 12 on arrival with some right-sided neglect. Patient, at the time of taking a history - mainly from the , appeared not to comprehend what I was asking. He appear to have word finding difficulty. Said he could not be seen here because [facility] patient had a initial CAT scan done in the ED that was negative for any acute stroke. Upon discussion with the neurologist, patient's was subsequently giving TPA and a CT of his head and neck done subsequently showed moderate to severe stenosis versus kinking seen at the ostium of the right vertebral artery. Vitals in the ED with a temperature of 6F, heart rate of 84, blood pressure 185/ 98, respiratory rate was 18, oxygen was 95% on RA. Past Medical History Past Medical History (Chronic Problems): Chronic Problems Hypertension (Chronic) TIA (transient ischemic attack) (Chronic) Depression (Chronic) Diabetes (Chronic) Allergies No Known Allergies Allergy (Verified 02/06/18 23:27) Home Medications: Ambulatory Orders Medication Instructions Recorded Atorvastatin Calcium [Lipitor] 40 mg PO QHS 10/11/16 Venlafaxine HCl 75 mg PO DAILY 10/11/16 glipiZIDE [Glucotrol] 20 mg PO BIDAC 10/11/16 Metoprolol Tartrate 12.5 mg PO BID 10/12/16 Aspirin [Aspirin, Baby] 81 mg PO DAILY@0800 tab.chew 12/11/16 Metformin HCl [Glucophage] 1,000 mg PO DINNER #0 12/11/16 Metformin HCl [Glucophage] 500 mg PO BREAKFAST #0 12/11/16 Surgical History: no surgical history Psychiatric History: Depression, - Lives: Spouse/ Significant Other Smoking Status: Former smoker Tobacco Use: Non-smoker Alcohol: None Drugs: None - *Family History Maternal History Items: No pertinent history Paternal History Items: Heart Disease Review of Systems Constitutional: Denies: Chills, Fever, Weight Change HEENT: Denies: Head Aches, Sinus Congestion, Sinus Drainage Cardiovascular: Denies: Chest Pain, Palpitations Respiratory: Denies: Cough, Shortness of breath at rest, Sputum production Gastrointestinal: Denies: Abdominal Pain, Nausea, Vomiting Genitourinary: Denies: Dysuria Musculoskeletal: Denies: Joint Pain, Joint Tenderness Skin: Denies: Rash, Wounds Neurological: Denies: Numbness, Tingling, Focal weakness Psychiatric: Denies: Anxiety, Depression, Homicidal Ideations, Suicidal Ideations Hematologic/ Lymphatic: Denies: Easy Bruising, Easy Bleeding - Physical Exam General: Alert, Oriented x3, Cooperative HEENT: Atraumatic, PERRLA, EOMI, Normocephalic Neck: Supple, No JVD, Negative Carotid Bruits Lungs: Clear to auscultation, Normal air movement Cardiovascular: Regular rate, No murmurs Abdomen: Bowel Sounds Present, Soft, Non Tender Extremities: No edema, Capillary Refill Less than 3 Seconds Skin: No rashes, No breakdown Musculoskeletal: No Tenderness to Palpation of Joints or Extremities Neurological: Cranial nerves II-XII grossly intact Psych/Mental Status: Normal Affect, Appropriate Vital Signs Temp Pulse Resp BP Pulse Ox 36.9 C 95 17 96/63 95 02/07/18 08:00 02/07/18 10:09 02/07/18 09:00 02/07/18 09:00 02/07/18 09:00 Oxygen Delivery Method Room Air Weight: 79.1 kg Body Mass Index (BMI) 25.4 Intake and Output for Last 24 Hours 02/05/18 02/06/18 02/07/18 23:59 23:59 23:59 Intake Total 1190 / 1190 Output Total 1250 / 1250 Balance -60 / -60 Laboratory Tests Past 24 Hrs 02/06/18 02/06/18 02/07/18 21:30 22:30 04:55 WBC RBC Hgb Hct MCV MCH MCHC RDW RDW Differential Plt Count MPV Sodium 138 Potassium 4.1 Chloride 103 Carbon Dioxide 23.0 Anion Gap 12 BUN 19 H Creatinine 1.24 Estim Creat Clear Calc 55.16 Est GFR (MDRD) Af Amer 75 Est GFR (MDRD) Non-Af 62 BUN/Creatinine Ratio 15.3 Glucose 384 H Hemoglobin A1c 8.2 H Calcium 8.3 L Phosphorus Magnesium Total Bilirubin Direct Bilirubin AST ALT Alkaline Phosphatase Total Protein Albumin Globulin Triglycerides 114 Cholesterol 110 LDL Cholesterol 51 VLDL Cholesterol 23 HDL Cholesterol 36 L MRSA (PCR) Negative 02/07/18 02/07/18 04:55 04:55 WBC 11.8 H RBC 4.15 L Hgb 13.3 Hct 38.3 L MCV 92.3 MCH 32.0 MCHC 34.7 RDW 12.4 RDW Differential 40.8 Plt Count 238 MPV 10.3 Sodium Potassium Chloride Carbon Dioxide Anion Gap BUN Creatinine Estim Creat Clear Calc Est GFR (MDRD) Af Amer Est GFR (MDRD) Non-Af BUN/Creatinine Ratio Glucose Hemoglobin A1c Calcium Phosphorus 3.7 Magnesium 1.9 Total Bilirubin 0.50 Direct Bilirubin 0.13 AST 12 L ALT 27 Alkaline Phosphatase 78 Total Protein 6.5 Albumin 3.4 Globulin 3.1 Triglycerides Cholesterol LDL Cholesterol VLDL Cholesterol HDL Cholesterol MRSA (PCR) POC Glucose 02/07/18 02/06/18 07:05 21:57 POC Glucose 279 H 402 H I reviewed, normal Assessment/Plan cva vs tia vs hyperglycemia vs sz vs conversion mri normal resolved sx depression history, appears controlled will check eeg therapies continue asa/statin/bp control
--- NOTE | 2018-02-07 11:01 | CASEMGMT ---
Addendum entered by Ilia Toro 02/07/18 11:32: Discussed [facility] billing with pt including [facility] was notified of admission, pt is willing to transfer if needed, and if pt has MCR, stay may be billed under [facility] if [facility] does not transfer pt to their facility. Pt is aware, does not wish to sign declination of transfer because he wishes to have this stay billed under his [facility] benefits and is willing to transfer if bed is available. BARB TELLES let pt know he will be updated re: transfer as soon as CM is notified. Jasper MATTHEW Original Note: BARB TELLES Note. Pt has Veterans's benefits and MCR. Call to [place] transfer line to notify of admission. Message left with demographics and last 4 of SS#. Call back information given. Jasper MATTHEW
[2018-02-07] MEDS: Venlafaxine XR 75 MG Capsule PO (11:16)
[2018-02-07 11:31] LABS: Bedside Glucose 108 mg/dL (70-110)
--- NOTE | 2018-02-07 13:26 | SLEEP ---
Seen patient and education was given on the importance of PAP therapy compliance. Pt verbalized understanding and states that he is a current user however his cat does not like the mask and machine therefore he takes it off most nights. I encouraged pt to increase PAP usage and informed him if he was having any issues with his mask that he could follow up with his DME provider or contact our sleep lab.
--- NOTE | 2018-02-07 13:29 | EEG ---
- Electroencephalogram Date of service 02/07/18 This is an 18 channel electroencephalogram performed utilizing the EKG reference lead, hyperventilation and photic stimulation as well as the International 10-20 electrode placement protocol on this 67-year-old male who presented with a recurrent spell of language abnormality associated with right-sided weakness. Previous evaluation in the past for this has been negative for stroke. 18 channel EEG is recorded. Hyperventilation demonstrates a normal symmetric driving response. Hyperventilation was performed for 2 minutes with good effort with no lateralizing or platform changes. The post-lymph ventilatory phase was unremarkable. Patient remained awake throughout the recording, there is mild diffuse nonspecific background slowing at a frequency of 6-7 Hz. EEG rhythm strip is normal sinus rhythm throughout the recording and photic stimulation generates a normal symmetric driving response in the posterior leads. Impression: abnormal electroencephalogram due to the presence of diffuse nonspecific slowing. There are no lateralizing or epileptiform changes.
--- NOTE | 2018-02-07 13:33 | EEG_ITS ---
- Electroencephalogram Date of service 02/07/18 This is an 18 channel electroencephalogram performed utilizing the EKG reference lead, hyperventilation and photic stimulation as well as the International 10-20 electrode placement protocol on this 67-year-old male who presented with a recurrent spell of language abnormality associated with right- sided weakness. Previous evaluation in the past for this has been negative for stroke. 18 channel EEG is recorded. Hyperventilation demonstrates a normal symmetric driving response. Hyperventilation was performed for 2 minutes with good effort with no lateralizing or platform changes. The post-lymph ventilatory phase was unremarkable. Patient remained awake throughout the recording, there is mild diffuse nonspecific background slowing at a frequency of 6-7 Hz. EEG rhythm strip is normal sinus rhythm throughout the recording and photic stimulation generates a normal symmetric driving response in the posterior leads. Impression: abnormal electroencephalogram due to the presence of diffuse nonspecific slowing. There are no lateralizing or epileptiform changes.
[2018-02-07 14:26] LABS: Microalbumin:Creatinine Ratio 6.7 mg/g CRE (<30 mg/g CRE)
[2018-02-07 16:56] LABS: Bedside Glucose 305 mg/dL (70-110)
[2018-02-07] MEDS: Atorvastatin Calcium 40 MG Tablet PO (21:25)
[2018-02-07 21:36] LABS: Bedside Glucose 266 mg/dL (70-110)
[2018-02-08] VITALS (13 sets, daily range): BP systolic 134–157; BP diastolic 74–93; PULSE 60–96; RESP 15–22; TEMP 36.4–36.6; O2SAT 96–100
[2018-02-08 06:20] LABS: Anion Gap 8 (5-15); BUN 17 mg/dL (7-18); BUN/Creat Ratio 20.4 RATIO (10-20); Calcium,Total 7.9 mg/dL (8.5-10.1); Chloride 109 mmol/L (98-107); Creatinine, Serum 0.83 mg/dL (0.70-1.30); EST Glomerular Filtration Rate 98 mL/min (>60); Est Glom Filt Rate - Afr Amer 118 mL/min (>60); Estimated Creatinine Clearance 82.41 ml/min; Glucose 204 mg/dL (74-106); Potassium 4.1 mmol/L (3.5-5.1); Sodium Level 141 mmol/L (136-145)
--- NOTE | 2018-02-08 06:35 | PCM.PN.INT ---
Subjective: Patient did well overnight. No acute issues were reported. Patient feels that he is back to his baseline at this time. Patient denies any change in sensation or muscle strength intermittently. Nursing reports no overnight issues. Objective: MRI showed no acute CVA. EEG showed diffuse slowing without lateralizing epileptiform activity. General: Alert, Oriented x3, Cooperative, No apparent distress, Well developed, Well nourished, - - Speaks in full sentences. HEENT: Atraumatic, PERRLA, EOMI, Normocephalic, - - No scleral icterus or injection noted. No facial droop noted. Oral: Moist Mucosa, No Gingival or Mucosal Lesions/ Ulcerations Neck: Supple, No JVD, No Nodes, Trachea Midline Lungs: Clear to auscultation, Normal air movement, No rhonchi, No wheeze, No rales, - - Symmetric expansion. No dullness to percussion. Cardiovascular: Regular rate, Regular Rhythm, Normal S1, Normal S2, No murmurs, No rub noted, No Gallop, - - No atrial fibrillation noted Abdomen: Bowel Sounds Present, Soft, Non Tender, Non-Distended Extremities: No clubbing, No cyanosis, No edema, Capillary Refill Less than 3 Seconds Skin: No rashes, No breakdown Musculoskeletal: No Tenderness to Palpation of Joints or Extremities Lymphatic: No Cervical, Supraclavicular, or Inguinal Adenopathy Neurological: Cranial nerves II-XII grossly intact, Neuro grossly intact, Motor Exam 5/5 strength throughout, Sensory exam intact to light touch and pain Psych/Mental Status: Alert and oriented to time, place, person, mood and affect Vital Signs Temp Pulse Resp BP Pulse Ox 36.5 C L 66 20 H 154/86 H 97 02/08/18 04:00 02/08/18 06:00 02/08/18 06:00 02/08/18 06:00 02/08/18 06:00 Oxygen Delivery Method Room Air Weight: 81.7 kg Body Mass Index (BMI) 25.4 Intake and Output for Last 24 Hours 02/06/18 02/07/18 02/08/18 23:59 23:59 23:59 Intake Total 2971 / 2971 1042 / 1042 Output Total 1700 / 1700 550 / 550 Balance 1271 / 1271 492 / 492 Labs (Last 48 Hours) 02/06/18 02/06/18 02/06/18 21:30 21:57 22:30 WBC RBC Hgb Hct MCV MCH MCHC RDW RDW Differential Plt Count MPV Sodium Potassium Chloride Carbon Dioxide Anion Gap BUN Creatinine Estim Creat Clear Calc Est GFR (MDRD) Af Amer Est GFR (MDRD) Non-Af BUN/Creatinine Ratio Glucose Hemoglobin A1c 8.2 H Calcium Phosphorus Magnesium Total Bilirubin Direct Bilirubin AST ALT Alkaline Phosphatase Total Protein Albumin Globulin Triglycerides Cholesterol LDL Cholesterol VLDL Cholesterol HDL Cholesterol Ur Random Microalbumin Urine Creatinine Microalb/Creat Ratio MRSA (PCR) Negative POC Glucose 402 H 02/07/18 02/07/18 02/07/18 04:55 04:55 04:55 WBC 11.8 H RBC 4.15 L Hgb 13.3 Hct 38.3 L MCV 92.3 MCH 32.0 MCHC 34.7 RDW 12.4 RDW Differential 40.8 Plt Count 238 MPV 10.3 Sodium 138 Potassium 4.1 Chloride 103 Carbon Dioxide 23.0 Anion Gap 12 BUN 19 H Creatinine 1.24 Estim Creat Clear Calc 55.16 Est GFR (MDRD) Af Amer 75 Est GFR (MDRD) Non-Af 62 BUN/Creatinine Ratio 15.3 Glucose 384 H Hemoglobin A1c Calcium 8.3 L Phosphorus 3.7 Magnesium 1.9 Total Bilirubin 0.50 Direct Bilirubin 0.13 AST 12 L ALT 27 Alkaline Phosphatase 78 Total Protein 6.5 Albumin 3.4 Globulin 3.1 Triglycerides 114 Cholesterol 110 LDL Cholesterol 51 VLDL Cholesterol 23 HDL Cholesterol 36 L Ur Random Microalbumin Urine Creatinine Microalb/Creat Ratio MRSA (PCR) POC Glucose 02/07/18 02/07/18 02/07/18 07:05 11:18 13:45 WBC RBC Hgb Hct MCV MCH MCHC RDW RDW Differential Plt Count MPV Sodium Potassium Chloride Carbon Dioxide Anion Gap BUN Creatinine Estim Creat Clear Calc Est GFR (MDRD) Af Amer Est GFR (MDRD) Non-Af BUN/Creatinine Ratio Glucose Hemoglobin A1c Calcium Phosphorus Magnesium Total Bilirubin Direct Bilirubin AST ALT Alkaline Phosphatase Total Protein Albumin Globulin Triglycerides Cholesterol LDL Cholesterol VLDL Cholesterol HDL Cholesterol Ur Random Microalbumin 9.0 Urine Creatinine 134.00 Microalb/Creat Ratio 6.7 MRSA (PCR) POC Glucose 279 H 108 02/07/18 02/07/18 02/08/18 16:45 21:21 05:50 WBC RBC Hgb Hct MCV MCH MCHC RDW RDW Differential Plt Count MPV Sodium 141 Potassium 4.1 Chloride 109 H Carbon Dioxide 24.0 Anion Gap 8 BUN 17 Creatinine 0.83 Estim Creat Clear Calc 82.41 Est GFR (MDRD) Af Amer 118 Est GFR (MDRD) Non-Af 98 BUN/Creatinine Ratio 20.4 H Glucose 204 H Hemoglobin A1c Calcium 7.9 L Phosphorus Magnesium Total Bilirubin Direct Bilirubin AST ALT Alkaline Phosphatase Total Protein Albumin Globulin Triglycerides Cholesterol LDL Cholesterol VLDL Cholesterol HDL Cholesterol Ur Random Microalbumin Urine Creatinine Microalb/Creat Ratio MRSA (PCR) POC Glucose 305 H 266 H Clinical Impression(s) from Imaging Studies Brain MRI 02/06/18 21:07 IMPRESSION: No acute intracranial abnormality. Electronically Signed: Mckenzie Reyes MD at 10:24 EDT Tel , Service support , Medical Necessity - Tobacco Use Smoking Status: Former smoker Tobacco Use: Non-smoker Assessment/Plan RECOMMENDATIONS: 1. Consider increasing hyperglycemic regimen as an outpatient 2. Tighter control of hypertension likely indicated 3. Hemodynamically stable on room air. Will sign off from a critical care perspective. IMPRESSIONS: 1. Possible acute CVA status post TPA Patient with an NIH of 12 on initial presentation to the emergency room. Patient was given TPA and appears to have completely resolved at this time. No bleeding complications have been noted. Patient has had some elevated blood pressures, but no intervention has been required at this time. Antihypertensives could be titrated as an outpatient. MRI shows no residual damage. 2. Type 2 diabetes mellitus, uncontrolled Patient with elevated blood sugars this morning. Metformin was held secondary to recent contrast. Patient given a 10 unit bolus of insulin yesterday with marginal control overnight. Renal function appears to be at baseline. Likely okay to reinitiate metformin may need to titrate up hyperglycemic medications as an outpatient.. 3. Hypertension/depression/coronary artery disease/poor historian Complicates care, management, recovery and prognosis. Permissive hypertension no longer indicated. Okay to titrate blood pressure medications. Code Visit Inpatient E&M: 49600 Subs Hosp L2
[2018-02-08] MEDS: Insulin Lispro 100 UNIT/ML INSULN.PEN SQ (07:52)
[2018-02-08] MEDS: 0.9% Normal Saline 1,000 ML 100 ML IV (07:52)
[2018-02-08] MEDS: Insulin Lispro 100 UNIT/ML INSULN.PEN 6 UNIT SC (07:52)
--- NOTE | 2018-02-08 09:48 | PCM.DC ---
- Discharge Diagnoses Current Active Problems: Current Active and Chronic Problems Hypertension (Chronic) You will use the following diet at home:: Calorie/Carbohydrate Controlled (specify 1200, 1400, etc) - 2,000 calorie diet, carb control, Cardiac Your food should be the consistency of: Regular Your liquids should be the consistency of: Regular/Thin Discharge Activity: Return to Normal Activity Call your doctor if you observe: Fever of 101 or Higher, Shortness of breath, Dizziness, Fainting spells, Chest pain, - - Recurrent unilateral numbness or weakness, slurred speech, facial droop, loss of vision or hearing, distant dry cough, swelling of the lips or tongue. Additional Instructions: 1. Your BP is not well controlled. I have started you on a medication called Lisinopril to help with better BP control. Your heart muscle is stiff and does not relax normally. This can happen with uncontrolled BP and Lisinopril is a good drug to help remodel the heart muscle. You will take it once a day. 2. You can resume your previous home medications. Your cholesterol is actually good. The HGBA1C is 8.2 and you need to better with diet. 3. The EEG (brain wave study) was negative for seizures and there was no problem with the rhythm of the heart on the heart monitor. Pending Tests on Discharge: none Allergies/Adverse Reactions: Allergies No Known Allergies Allergy (Verified 02/06/18 23:27) Medications to take at Discharge Atorvastatin Calcium [Lipitor] 40 mg PO QHS 10/11/16 Venlafaxine HCl 75 mg PO DAILY 10/11/16 glipiZIDE [Glucotrol] 20 mg PO BIDAC 10/11/16 Metoprolol Tartrate 12.5 mg PO BID 10/12/16 Aspirin [Aspirin, Baby] 81 mg PO DAILY@0800 tab.chew 12/11/16 Metformin HCl [Glucophage] 1,000 mg PO DINNER #0 12/11/16 Metformin HCl [Glucophage] 500 mg PO BREAKFAST #0 12/11/16 Lisinopril [Prinivil] 5 mg PO DAILY #30 tab 02/08/18 The following prescriptions were given: Lisinopril [Prinivil] 5 mg PO DAILY #30 tab Primary Care Physician: [facility],[place] [Primary Care Provider] - Please follow up with your Primary Care Physician in: within the next 2 weeks Proposed Discharge Date: 02/08/18
--- NOTE | 2018-02-08 09:55 | DCINST_ITS ---
- Discharge Diagnoses Current Active Problems: Current Active and Chronic Problems Hypertension (Chronic) You will use the following diet at home:: Calorie/Carbohydrate Controlled ( specify 1200, 1400, etc) - 2,000 calorie diet, carb control, Cardiac Your food should be the consistency of: Regular Your liquids should be the consistency of: Regular/Thin Discharge Activity: Return to Normal Activity Call your doctor if you observe: Fever of 101 or Higher, Shortness of breath, Dizziness, Fainting spells, Chest pain, - - Recurrent unilateral numbness or weakness, slurred speech, facial droop, loss of vision or hearing, distant dry cough, swelling of the lips or tongue. Additional Instructions: 1. Your BP is not well controlled. I have started you on a medication called Lisinopril to help with better BP control. Your heart muscle is stiff and does not relax normally. This can happen with uncontrolled BP and Lisinopril is a good drug to help remodel the heart muscle. You will take it once a day. 2. You can resume your previous home medications. Your cholesterol is actually good. The HGBA1C is 8.2 and you need to better with diet. 3. The EEG (brain wave study) was negative for seizures and there was no problem with the rhythm of the heart on the heart monitor. Pending Tests on Discharge: none Allergies/Adverse Reactions: Allergies No Known Allergies Allergy (Verified 02/06/18 23:27) Medications to take at Discharge Atorvastatin Calcium [Lipitor] 40 mg PO QHS 10/11/16 Venlafaxine HCl 75 mg PO DAILY 10/11/16 glipiZIDE [Glucotrol] 20 mg PO BIDAC 10/11/16 Metoprolol Tartrate 12.5 mg PO BID 10/12/16 Aspirin [Aspirin, Baby] 81 mg PO DAILY@0800 tab.chew 12/11/16 Metformin HCl [Glucophage] 1,000 mg PO DINNER #0 12/11/16 Metformin HCl [Glucophage] 500 mg PO BREAKFAST #0 12/11/16 Lisinopril [Prinivil] 5 mg PO DAILY #30 tab 02/08/18 The following prescriptions were given: Lisinopril [Prinivil] 5 mg PO DAILY #30 tab Primary Care Physician: [facility],[place] [Primary Care Provider] - Please follow up with your Primary Care Physician in: within the next 2 weeks Proposed Discharge Date: 02/08/18
--- NOTE | 2018-02-08 09:58 | PCM.DC.SUM ---
Discharge Date and Diagnosis Date of Admission: 02/06/18 Date of Discharge: 02/08/18 - Primary Discharge Diagnosis CVA vs TIA - received TPA with complete resolution of symptoms and normal MRI NSVT - 4 beat run, asymptomatic - Secondary Discharge Diagnosis Chronic Problems Hypertension (Chronic) - not adequately controlled remote hx TIA (transient ischemic attack) (Chronic) Depression (Chronic) Diabetes type II (Chronic)- not controlled HLD - Controlled Questionable compliance with medications Mild aortic stenosis Diastolic dysfunction Hospital Course and Treatment Imaging Results: Clinical Impression(s) from Imaging Studies Brain CT 02/06/18 16:11 IMPRESSION: Stable chronic ischemic and atrophic changes. No acute intracranial abnormality. N.B. : The above information has been verbally conveyed by Pro Samaniego to Jeffrey Alvarado, Referring Physician, on 02/06/2018 16:37:24 (ET). Electronically Signed: Pro Samaniego, at 16:37 EDT Tel , Service support , N.B. : The above information has been verbally conveyed by Pro Samaniego to Jeffrey Alvarado, Referring Physician, on 02/06/2018 16:37:24 (ET). Chest X-Ray 02/06/18 16:11 IMPRESSION: No acute thoracic pathology. Electronically Signed: Pro Samaniego, at 17:25 EDT Tel , Service support , Head CTA 02/06/18 16:46 IMPRESSION: No demonstrated aneurysm or hemodynamically significant stenosis of the intracranial arterial circulation, unchanged. Electronically Signed: Jermaine Mathur MD at 19:34 EDT , Service support , Neck CTA 02/06/18 16:46 IMPRESSION: 1. Moderate atherosclerotic plaquing of the bilateral cervical carotid artery bifurcations without significant narrowing of the internal carotid arteries. 2. Moderate to moderately severe stenosis versus kinking at the ostium of the right vertebral artery. The left vertebral artery is widely patent. Electronically Signed: Jermaine Mathur MD at 19:15 EDT , Service support , Brain MRI 02/06/18 21:07 IMPRESSION: No acute intracranial abnormality. Electronically Signed: Mckenzie Reyes MD at 10:24 EDT Tel , Service support , Dr. Raul Aranda-neurology Dr. Basil Gonzales-patient financial services specialist Operations: None Procedures: 2-D Echocardiogram, Electroencephalogram Summary of Care Provided: The patient is a 67-year-old male with a past medical history of hypertension, TIA, depression, diabetes mellitus type 2 and hyperlipidemia who presented to the emergency room by squad with right-sided weakness, slurred speech and confusion. In the emergency room his initial NIH was 12 with expressive aphasia and right-sided weakness. Vital signs upon arrival to the emergency room were temperature 96, pulse rate 84, blood pressure 185/98, respiratory rate 18 and he was 95% saturated on room air. CT brain showed stable chronic ischemic and atrophic changes with no acute intracranial abnormality. Chest x-ray showed no pulmonary vascular congestion, infiltrates or pleural effusions. CTA of the neck showed moderate atherosclerotic plaquing of bilateral cervical carotid artery bifurcations without significant narrowing of the internal carotid arteries. There was moderate to moderately severe stenosis versus kinking at the ostium of the right vertebral artery. The left vertebral artery was widely patent. CTA of the head showed no demonstrated aneurysm or hemodynamically significant stenosis of the intracranial arterial circulation. CBC was unremarkable. PT and PTT were normal. Potassium was elevated at 5.3 and the BUN was 19 with a creatinine of 1.16. Random blood sugar was 363 and a hemoglobin A1c is 8.2. Troponin was less than 0.015. LDL is 51 with an HDL of 36. Triglycerides are 114. TPA was given in the emergency room. He was admitted to the intensive care unit and stroke protocol was initiated. The following morning the NIH was 0. MRI of the brain revealed no acute findings. Seen in consultation by Dr. Raul Aranda from neurology whose diagnosis was TIA versus ischemic CVA versus conversion reaction. Patient was seen and evaluated by speech therapy, Occupational Therapy and physical therapy. He has no deficits. An EEG showed diffuse non-specific slowing no epileptiform activity and no lateralizing signs. An echocardiogram was done and showed segmental wall motion abnormalities with a preserved ejection fraction of 60%. There was mild aortic stenosis and trivial mitral and tricuspid insufficiency. The right ventricular systolic pressure was estimated at 20 and there was evidence of diastolic dysfunction. On the date of discharge he had no focal neurologic deficits. He denied chest pain, shortness of breath, lightheadedness, nausea/vomiting. Blood pressures have not been adequately controlled and have ranged from 134/88-150 4/86 for the 24 hours preceding discharge. A creatinine/microalbumin ratio was obtained and was 6.7 which is within normal limits. CMP on the date of discharge showed potassium of 4.1 with BUN of 17 and a creatinine of 0.83. He was discharged home and will follow up with his PCP at the [facility] within the next 2 weeks. GENERAL: alert, oriented X 3, Cooperative, NAD, ORAL: moist mucosa, no mucosal lesions NECK: No JVD, supple, trachea midline, no carotid bruits heard LUNGS: CTA, symmetric chest expansion HEART: RRR, Normal S1 and S2, no rub, no gallop, no MM ABDOMEN: soft, NT, ND, BS present, no guarding with palpation EXTREMITIES: no edema, no cyanosis, no calf tenderness, pulses are normal in the arms and legs SKIN: No rashes, no breakdown NEUROLOGIC: no focal neurologic deficits, CN II - XII are grossly intact, moving all extremities, NIH is 0 PSYCH: appropriate, normal affect, many excuses why he does not take his medications as instructed This note was generated with [employer] dictation software. It may contain incorrect words, spelling, and punctuation that were not noted in checking the note before signing. Discharge Activity: Return to Normal Activity Call your doctor if you observe: Fever of 101 or Higher, Shortness of breath, Dizziness, Fainting spells, Chest pain, - - Recurrent unilateral numbness or weakness, slurred speech, facial droop, loss of vision or hearing, distant dry cough, swelling of the lips or tongue. Home Medications: Medications to take at Discharge Atorvastatin Calcium [Lipitor] 40 mg PO QHS 10/11/16 Venlafaxine HCl 75 mg PO DAILY 10/11/16 glipiZIDE [Glucotrol] 20 mg PO BIDAC 10/11/16 Metoprolol Tartrate 12.5 mg PO BID 10/12/16 Aspirin [Aspirin, Baby] 81 mg PO DAILY@0800 tab.chew 12/11/16 Metformin HCl [Glucophage] 1,000 mg PO DINNER #0 12/11/16 Metformin HCl [Glucophage] 500 mg PO BREAKFAST #0 12/11/16 Lisinopril [Prinivil] 5 mg PO DAILY #30 tab 02/08/18 Following Prescrptions Were Given to Patient: Lisinopril [Prinivil] 5 mg PO DAILY #30 tab [facility] Phys[facility] [Primary [facility] Provider] - Please follow up with your Primary Care Physician in: within the next 2 weeks Disposition: Home Minutes spent on discharge:: 40 Patient Condition:: Good Medical Necessity - Tobacco Use Smoking Status: Former smoker Tobacco Use: Non-smoker Meaningful Use Info Meaningful Use Diagnoses (Choose all that apply): Ischemic CVA - CVA Therapy Assessed for PT,OT and/or ST?: Yes - Ischemic Stroke Antithrombotic order at d/c?: Yes Dx of Atrial fib/flutter?: No Anticoagulant at discharge?: No Reason anticoagulant not ordered: Treatment not Indicated Statins at discharge?: Yes Primary Dx Acute Ischemic CVA?: Yes IV tPA ordered during stay?: Yes Code Visit Inpatient E&M: [id number] Disch Hosp
--- NOTE | 2018-02-08 10:08 | DS.PCM_ITS ---
Discharge Date and Diagnosis Date of Admission: 02/06/18 Date of Discharge: 02/08/18 - Primary Discharge Diagnosis CVA vs TIA - received TPA with complete resolution of symptoms and normal MRI NSVT - 4 beat run, asymptomatic - Secondary Discharge Diagnosis Chronic Problems Hypertension (Chronic) - not adequately controlled remote hx TIA (transient ischemic attack) (Chronic) Depression (Chronic) Diabetes type II (Chronic)- not controlled HLD - Controlled Questionable compliance with medications Mild aortic stenosis Diastolic dysfunction Hospital Course and Treatment Imaging Results: Clinical Impression(s) from Imaging Studies Brain CT 02/06/18 16:11 IMPRESSION: Stable chronic ischemic and atrophic changes. No acute intracranial abnormality. N.B. : The above information has been verbally conveyed by Pro Samaniego to Jeffrey Alvarado, Referring Physician, on 02/06/2018 16:37:24 (ET). Electronically Signed: Pro Samaniego, at 16:37 EDT Tel , Service support , N.B. : The above information has been verbally conveyed by Pro Samaniego to Jeffrey Alvarado, Referring Physician, on 02/06/2018 16:37:24 (ET). Chest X-Ray 02/06/18 16:11 IMPRESSION: No acute thoracic pathology. Electronically Signed: Pro Samaniego, at 17:25 EDT Tel , Service support , Head CTA 02/06/18 16:46 IMPRESSION: No demonstrated aneurysm or hemodynamically significant stenosis of the intracranial arterial circulation, unchanged. Electronically Signed: Jermaine Mathur MD at 19:34 EDT , Service support , Neck CTA 02/06/18 16:46 IMPRESSION: 1. Moderate atherosclerotic plaquing of the bilateral cervical carotid artery bifurcations without significant narrowing of the internal carotid arteries. 2. Moderate to moderately severe stenosis versus kinking at the ostium of the right vertebral artery. The left vertebral artery is widely patent. Electronically Signed: Jermaine Mathur MD at 19:15 EDT , Service support , Brain MRI 02/06/18 21:07 IMPRESSION: No acute intracranial abnormality. Electronically Signed: Mckenzie Reyes MD at 10:24 EDT Tel , Service support , Dr. Raul Aranda-neurology Dr. Basil Gonzales-bmx rider Operations: None Procedures: 2-D Echocardiogram, Electroencephalogram Summary of Care Provided: The patient is a 67-year-old male with a past medical history of hypertension, TIA, depression, diabetes mellitus type 2 and hyperlipidemia who presented to the emergency room by squad with right-sided weakness, slurred speech and confusion. In the emergency room his initial NIH was 12 with expressive aphasia and right-sided weakness. Vital signs upon arrival to the emergency room were temperature 96, pulse rate 84, blood pressure 185/98, respiratory rate 18 and he was 95% saturated on room air. CT brain showed stable chronic ischemic and atrophic changes with no acute intracranial abnormality. Chest x-ray showed no pulmonary vascular congestion, infiltrates or pleural effusions. CTA of the neck showed moderate atherosclerotic plaquing of bilateral cervical carotid artery bifurcations without significant narrowing of the internal carotid arteries. There was moderate to moderately severe stenosis versus kinking at the ostium of the right vertebral artery. The left vertebral artery was widely patent. CTA of the head showed no demonstrated aneurysm or hemodynamically significant stenosis of the intracranial arterial circulation. CBC was unremarkable. PT and PTT were normal. Potassium was elevated at 5.3 and the BUN was 19 with a creatinine of 1.16. Random blood sugar was 363 and a hemoglobin A1c is 8.2. Troponin was less than 0.015. LDL is 51 with an HDL of 36. Triglycerides are 114. TPA was given in the emergency room. He was admitted to the intensive care unit and stroke protocol was initiated. The following morning the NIH was 0. MRI of the brain revealed no acute findings. Seen in consultation by Dr. Raul Aranda from neurology whose diagnosis was TIA versus ischemic CVA versus conversion reaction. Patient was seen and evaluated by speech therapy, Occupational Therapy and physical therapy. He has no deficits. An EEG showed diffuse non-specific slowing no epileptiform activity and no lateralizing signs. An echocardiogram was done and showed segmental wall motion abnormalities with a preserved ejection fraction of 60%. There was mild aortic stenosis and trivial mitral and tricuspid insufficiency. The right ventricular systolic pressure was estimated at 20 and there was evidence of diastolic dysfunction. On the date of discharge he had no focal neurologic deficits. He denied chest pain, shortness of breath, lightheadedness, nausea/vomiting. Blood pressures have not been adequately controlled and have ranged from 134/88-150 4/86 for the 24 hours preceding discharge. A creatinine/microalbumin ratio was obtained and was 6.7 which is within normal limits. CMP on the date of discharge showed potassium of 4.1 with BUN of 17 and a creatinine of 0.83. He was discharged home and will follow up with his PCP at the [facility] within the next 2 weeks. GENERAL: alert, oriented X 3, Cooperative, NAD, ORAL: moist mucosa, no mucosal lesions NECK: No JVD, supple, trachea midline, no carotid bruits heard LUNGS: CTA, symmetric chest expansion HEART: RRR, Normal S1 and S2, no rub, no gallop, no MM ABDOMEN: soft, NT, ND, BS present, no guarding with palpation EXTREMITIES: no edema, no cyanosis, no calf tenderness, pulses are normal in the arms and legs SKIN: No rashes, no breakdown NEUROLOGIC: no focal neurologic deficits, CN II - XII are grossly intact, moving all extremities, NIH is 0 PSYCH: appropriate, normal affect, many excuses why he does not take his medications as instructed This note was generated with [email or web address] dictation software. It may contain incorrect words, spelling, and punctuation that were not noted in checking the note before signing. Discharge Activity: Return to Normal Activity Call your doctor if you observe: Fever of 101 or Higher, Shortness of breath, Dizziness, Fainting spells, Chest pain, - - Recurrent unilateral numbness or weakness, slurred speech, facial droop, loss of vision or hearing, distant dry cough, swelling of the lips or tongue. Home Medications: Medications to take at Discharge Atorvastatin Calcium [Lipitor] 40 mg PO QHS 10/11/16 Venlafaxine HCl 75 mg PO DAILY 10/11/16 glipiZIDE [Glucotrol] 20 mg PO BIDAC 10/11/16 Metoprolol Tartrate 12.5 mg PO BID 10/12/16 Aspirin [Aspirin, Baby] 81 mg PO DAILY@0800 tab.chew 12/11/16 Metformin HCl [Glucophage] 1,000 mg PO DINNER #0 12/11/16 Metformin HCl [Glucophage] 500 mg PO BREAKFAST #0 12/11/16 Lisinopril [Prinivil] 5 mg PO DAILY #30 tab 02/08/18 Following Prescrptions Were Given to Patient: Lisinopril [Prinivil] 5 mg PO DAILY #30 tab [facility] Physician: [facility] [Primary [facility] Provider] - Please follow up with your Primary Care Physician in: within the next 2 weeks Disposition: Home Minutes spent on discharge:: 40 Patient Condition:: Good Medical Necessity - Tobacco Use Smoking Status: Former smoker Tobacco Use: Non-smoker Meaningful Use Info Meaningful Use Diagnoses (Choose all that apply): Ischemic CVA - CVA Therapy Assessed for PT,OT and/or ST?: Yes - Ischemic Stroke Antithrombotic order at d/c?: Yes Dx of Atrial fib/flutter?: No Anticoagulant at discharge?: No Reason anticoagulant not ordered: Treatment not Indicated Statins at discharge?: Yes Primary Dx Acute Ischemic CVA?: Yes IV tPA ordered during stay?: Yes Code Visit Inpatient E&M: [id number] Disch Hosp
--- NOTE | 2018-02-08 10:23 | NURSING ---
pt refused for us to make his follow up appointment, states he will make it himself.
[2018-02-08] MEDS: Metoprolol Tartrate 25 MG Tablet 12.5 MG PO (10:33)
[2018-02-08] MEDS: Venlafaxine XR 75 MG Capsule PO (10:33)
== END 2018-02-08 11:00 | disposition home or self-care (01) | DRG 62 ==
LOC: ED 18:33 → ICU 20:02
PROVIDERS: Internal Medicine Critical Care Medicine; Admitting Provider Internal Medicine; Emergency Provider Emergency Medicine; Visit Provider Internal Medicine
DX: I63.9 Cerebral infarction, unspecified (principal); I47.2 Ventricular tachycardia; R41.4 Neurologic neglect syndrome; G81.91 Hemiplegia, unspecified affecting right dominant side; I10 Essential (primary) hypertension; F32.9 Major depressive disorder, single episode, unspecified; E78.5 Hyperlipidemia, unspecified; R47.01 Aphasia; I25.10 Atherosclerotic heart disease of native coronary artery without angina pectoris; I35.0 Nonrheumatic aortic (valve) stenosis; R47.1 Dysarthria and anarthria; R29.712 NIHSS score 12; F41.9 Anxiety disorder, unspecified; E11.65 Type 2 diabetes mellitus with hyperglycemia; Z91.14 Patient's other noncompliance with medication regimen; Z87.891 Personal history of nicotine dependence; Z79.82 Long term (current) use of aspirin
CPT/HCPCS: 70450; 70496; 70498; 70551; 71045; 80048; 80061; 80076; 82043; 82570; 82962; 83036; 83735; 84100; 84484; 85025; 85027; 85610; 85730; 87641; 92523; 93005; 93306; 97162; 97165; 99285; J2997; J7030; J7040; Q9967; A4216; J2405; J3490